=== PATIENT | female | born 1935 | race Caucasian/White ===

== ENCOUNTER 2016-09-07 11:44 | Emergency (ER) | payer MEDICARE, OTHER ==
--- NOTE | ~2016-09-07 | CR141 ---
[facility] A Service [facility] RADIOLOGY TEXT RESULTS PATIENT: MARILY KINCAID LOCATION: [facility] : 33 UNIT #: [id number] AGE: [address]: Andrea Lanier MD SEX: F ORDER DR: [id number] [facility] [address] [place], [place] [address] [id number] E MR#: [id number] Acc #: [id number] NAME: MARILY KINCAID. : 1935 SEX: F STUDY DATE/TIME: 09/07/2016 11:06 UNIT: [facility] ROOM: STUDY DESCRIPTION: CR Hand Min 3 Views Lt Attending Physician: Andrea Lanier M.D. Ordering Physician: Ed Doctor [id number] [facility] Primary Care Physician: Cesar Gimenez III, M.D. MEDICAL IMAGING REPORT This report is preliminary unless electronic signature is present EXAM Left hand 09/07/2016 INDICATION 80-year-old female with left hand pain and swelling. Wrist pain symptoms 3 days. No known injury. TECHNIQUE 3 views left hand. COMPARISON None. FINDINGS There is generalized nonspecific soft tissue swelling. No subcutaneous air or focal erosive change. This may reflect cellulitis. No acute fracture. There are degenerative changes of the PIP and DIP joints. 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 IMPRESSION 1. There is nonspecific generalized soft tissue swelling about the wrist that may reflect cellulitis. 2. The bones are osteoporotic. No acute fracture. 3. Degenerative changes and evidence of CPPD as described. Dictated by... Shaquille Melendez M.D. THIS IS AN ELECTRONICALLY VERIFIED REPORT Shaquille Melendez M.D. at 09/07/2016 4:00 PM SYED/diamond [facility] A [facility] RADIOLOGY TEXT RESULTS PATIENT: MARILY KINCAID LOCATION: [facility] : 33 UNIT #: [id number] AGE: [address]: Andrea Lanier MD SEX: F ORDER DR: TD: 09/07/2016 13:20 JOB #: [id number] MEDICAL IMAGING REPORT COPY
--- NOTE | ~2016-09-07 | CR281 ---
[facility] A Service [facility] RADIOLOGY TEXT RESULTS PATIENT: MARILY KINCAID LOCATION: [facility] : 33 UNIT #: [id number] AGE: [address]: Andrea Lanier MD SEX: F ORDER DR: [id number] [place] [id number] [facility]. [place], [place] [address] [id number] E MR#: [id number] Acc #: [id number] NAME: MARILY KINCAID. : 1935 SEX: F STUDY DATE/TIME: 09/07/2016 11:05 UNIT: [facility] ROOM: STUDY DESCRIPTION: CR Wrist Min 3 View Lt Attending Physician: Andrea Lanier M.D. Ordering Physician: Harshad Soares M.D. Primary Care Physician: Cesar Gimenez III, M.D. MEDICAL IMAGING REPORT This report is preliminary unless electronic signature is present EXAM Left wrist, 09/07/2016. HISTORY 80-year-old female with wrist pain and swelling for 3 days. No known injury. TECHNIQUE 3 views left wrist. COMPARISON STUDIES None FINDINGS The bones are osteoporotic. No acute fracture. There is mild degenerative change in the radiocarpal joint. There is evidence of CPPD. Alignment preserved. Nonspecific soft tissue prominence about the wrist. No subcutaneous air or focal erosive change. IMPRESSION 1. There is generalized nonspecific soft tissue swelling that may reflect cellulitis. 2. No acute fracture; the bones are osteoporotic. Mild degenerative change and evidence of CPPD. Dictated by... Shaquille Melendez M.D. THIS IS AN ELECTRONICALLY VERIFIED REPORT Shaquille Melendez M.D. at 09/07/2016 4:00 PM [facility] A Service [facility] RADIOLOGY TEXT RESULTS PATIENT: MARILY KINCAID LOCATION: [facility] : 33 UNIT #: [id number] AGE: [address]: Andrea Lanire MD SEX: F ORDER DR: Rene TD: 09/07/2016 13:18 JOB #: [id number] MEDICAL IMAGING REPORT COPY
[~2016-09-07 11:44] MED LIST: ACTOPLUS MET 151 TA2; ACTOPLUS MET 151 TA2 PO; ATENOLOL25 MG PO; DARVOCET-N 1001 TA1 PO; DORZOLAMIDE-TIM10 ML OP; LANOXIN PO; MICRO-K; NEXIUM PO; TRAVATAN Z5 ML OP; TRAVATAN5 ML; ZOCOR; ZOCOR20 MG PO; ZOLOFT; ZOLOFT50 MG PO; [UNRECOGNIZED DRUG - OTHER] PO
== END 2016-09-07 12:58 | disposition home or self-care (01) ==
LOC: CED 11:44
DX: M25.532 Pain in left wrist (principal)
CPT/HCPCS: 29125; 73110; 73130; 99283

== ENCOUNTER 2016-10-12 12:25 | Emergency (ER) | payer MEDICARE, OTHER ==
--- NOTE | ~2016-10-12 | EKG ---
PATIENT: MARILY KINCAID UNIT #: [id number] Ventricular Rate: 122 BPM Atrial Rate: 91 BPM P-R Interval: 192 ms QRS Duration: 76 ms Q-T Interval: 284 ms QTC Calculation(Bezet): 404 ms Calculated R Taylor: 6 degrees Calculated T Taylor: 72 degrees Diagnosis Line: Multifocal atrial tachycardia Diagnosis Line: Septal infarct , age undetermined Diagnosis Line: Nonspecific ST and T wave abnormality Diagnosis Line: Abnormal ECG Diagnosis Line: No previous ECGs available Diagnosis Line: Confirmed by FRANCISCO ROPER MD ([id number]) on 10/14/2016 Diagnosis Line: 7:00:57 AM INTERPRETING MD: JUDSON ARNDT
--- NOTE | ~2016-10-12 | CR72 ---
[facility] A Service of [facility] RADIOLOGY TEXT RESULTS PATIENT: MARILY KINCAID LOCATION: [facility] : 33 UNIT #: [id number] AGE: [address]: Darcy Lloyd MD SEX: F ORDER DR: [id number] [facility] [address] [place], [place] [address] [id number] E MR#: [id number] Acc #: [id number] NAME: MARILY KINCAID : 1935 SEX: F STUDY DATE/TIME: 10/12/2016 12:23 UNIT: [facility] ROOM: STUDY DESCRIPTION: CR Chest Single View Portable Attending Physician: Darcy Lloyd M.D. Ordering Physician: Darcy Lloyd M.D. Primary Care Physician: Cesar Gimenez III, M.D. MEDICAL IMAGING REPORT This report is preliminary unless electronic signature is present EXAM AP chest radiograph, 10/12 COMPARISON 09/24/2015 HISTORY Palpitations. FINDINGS An AP view is obtained. Cardiac size in the patient is stable. Lungs show atelectasis in the bases with elevation of both hemidiaphragms. No acute process is seen. CONCLUSION Low volumes. No acute process. Dictated by... Bridger Olivia M.D. THIS IS AN ELECTRONICALLY VERIFIED REPORT Bridger Olivia M.D. at 10/15/2016 7:21 AM FIDEL/byron TD: 10/12/2016 16:12 JOB #: [id number] MEDICAL IMAGING REPORT Page 1 of 1 COPY
--- NOTE | ~2016-10-12 | EKG ---
PATIENT: MARILY KINCAID UNIT #: [id number] Ventricular Rate: 69 BPM Atrial Rate: 69 BPM P-R Interval: 198 ms QRS Duration: 84 ms Q-T Interval: 364 ms QTC Calculation(Bezet): 390 ms P Sel[place]: 76 degrees Calculated R [place]: 2 degrees Calculated T [place]: 64 degrees Diagnosis Line: Normal sinus rhythm Diagnosis Line: Normal ECG Diagnosis Line: When compared with ECG of 12-OCT-2016 11:56, Diagnosis Line: (unconfirmed) Diagnosis Line: Vent. rate has decreased BY 53 BPM Diagnosis Line: Confirmed by KAM COLEMAN MD ([id number]) on Diagnosis Line: 10/13/2016 4:53:01 PM INTERPRETING MD: FELI
[2016-10-12 12:15] LABS: POC - CKMB 2.2 ng/mL (0.0-7.9); POC - TROPONIN <0.05 ng/mL (<=0.05)
[2016-10-12 12:47] LABS: BASOPHIL% 0.3 % (0-2.5); EOSINOPHIL# 0.1 X10e3 (0-0.7); EOSINOPHIL% 1.2 % (0.0-7.0); HEMATOCRIT 41.9 % (35.0-45.0); HEMOGLOBIN 13.5 gm/dL (12.0-16.0); LYMPHOCYTE# 1.5 X10e3 (1.0-3.5); LYMPHOCYTE% 15.4 % (17.0-45.0); MEAN CELL VOLUME 83.9 FL (83-96); MEAN CORPUSCULAR HEMOGLOBIN 27.1 PG (28-34); MEAN CORPUSCULAR HGB CONC 32.3 g/dL (30-36); MEAN PLATELET VOLUME 8.6 FL (6.5-11.5); MONOCYTE# 0.9 X10e3 (0-1.0); MONOCYTE% 8.5 % (3.0-12.0); NEUTROPHIL# 7.5 X10e3 (1.5-7.1); NEUTROPHIL% 74.6 % (40-75); PLATELET COUNT 261 X10e3 (140-420); RED BLOOD COUNT 4.99 X10e (3.90-5.30); RED CELL DISTRIBUTION WIDTH 15.8 % (11.0-15.5)
[2016-10-12 12:54] LABS: DIFF IND NO
[2016-10-12 12:57] LABS: INR 1.7; PROTHROMBIN TIME (PATIENT) 18.5 SECONDS (9.6-11.5)
[2016-10-12 13:14] LABS: ALBUMIN SERUM 3.5 g/dL (3.5-5.0); BILIRUBIN, DIRECT 0.1 mg/dL (0.0-0.2); BILIRUBIN,INDIRECT 0.4 mg/dL (0.0-0.9); BILIRUBIN,TOTAL 0.5 mg/dL (0.2-2.0); CALCIUM SERUM 8.9 mg/dL (8.4-10.2); CREATININE SERUM 0.7 mg/dL (0.6-1.4); DIGOXIN (LANOXIN) 1.1 ng/ml (1.0-2.0); GLOM FILT RATE Estimated 80.1 mL/min (>60); MAGNESIUM 1.7 mg/dL (1.6-3.0); POTASSIUM 4.2 mmol/L (3.5-5.1); PROTEIN TOTAL SERUM 7.2 g/dL (6.0-8.3)
== END 2016-10-12 15:14 | disposition home or self-care (01) ==
LOC: CED 12:25
PROVIDERS: Emergency Medicine
DX: I48.91 Unspecified atrial fibrillation (principal); E11.9 Type 2 diabetes mellitus without complications; K21.9 Gastro-esophageal reflux disease without esophagitis; I10 Essential (primary) hypertension; Z90.49 Acquired absence of other specified parts of digestive tract; Z90.710 Acquired absence of both cervix and uterus
CPT/HCPCS: 36415; 71010; 80048; 80076; 80162; 82553; 83735; 84443; 84484; 85025; 85610; 85730; 93005; 99283; J3490

== ENCOUNTER 2016-12-31 11:04 | Emergency (ER) | payer MEDICARE, OTHER ==
--- NOTE | ~2016-12-31 | CR173 ---
[facility] A Service [facility] RADIOLOGY TEXT RESULTS PATIENT: MARILY KINCAID LOCATION: [facility] : 33 UNIT #: [id number] AGE: [address]: Piyush Umana MD SEX: F ORDER DR: [id number] [facility] [address] [place], [place] [address] [id number] E MR#: [id number] Acc #: [id number] NAME: MARILY KINCAID : 1935 SEX: F STUDY DATE/TIME: 12/31/2016 UNIT: [facility] ROOM: STUDY DESCRIPTION: CR Knee 3 Views Rt Attending Physician: Piyush Umana M.D. Ordering Physician: Piyush Umana M.D. Primary Care Physician: Cesar Gimenez III, M.D. MEDICAL IMAGING REPORT This report is preliminary unless electronic signature is present EXAM Right knee 12/31/2016 1151 hours HISTORY Patient slipped and fell today with posterior knee pain since fall. COMPARISON Bilateral knee films 10/04/2014. FINDINGS AP, cross-table lateral and sunrise views demonstrate advanced tricompartmental degenerative changes, greatest in the lateral and patellofemoral compartments, similar to 10/04/2014. There is no joint effusion or fracture. No dislocation. IMPRESSION There is advanced degenerative change, particularly in the lateral and patellofemoral compartments, similar to 10/04/2014. No joint effusion or fracture is seen. Dictated by... Melody Millard M.D. THIS IS AN ELECTRONICALLY VERIFIED REPORT Melody Millard M.D. at 01/01/2017 9:48 AM MOOKIE/fidencio TD: 12/31/2016 21:57 JOB #: [id number] MEDICAL IMAGING REPORT [facility] A Service [facility] RADIOLOGY TEXT RESULTS PATIENT: MARILY KINCAID LOCATION: [facility] : 33 UNIT #: [id number] AGE: [address]: Piyush Umana MD SEX: F ORDER DR: Page 1 of 1 COPY
--- NOTE | ~2016-12-31 | CR63 ---
[facility] A Service of [facility] RADIOLOGY TEXT RESULTS PATIENT: MARILY KINCAID LOCATION: [facility] : 33 UNIT #: [id number] AGE: [address]: Piyush Umnaa MD SEX: F ORDER DR: [id number] [facility] [address] [place], [place] [address] [id number] E MR#: [id number] Acc #: [id number] NAME: MARILY KINCAID : 1935 SEX: F STUDY DATE/TIME: 12/31/2016 11:51 UNIT: [facility] ROOM: STUDY DESCRIPTION: CR Chest 2 View Attending Physician: Piyush Umana M.D. Ordering Physician: Piyush Umana M.D. Primary Care Physician: Cesar Gimenez III, M.D. MEDICAL IMAGING REPORT This report is preliminary unless electronic signature is present EXAM Two views chest 12/31/2016 HISTORY Trauma. Slipped and fell today. Posterior knee pain. Right rib pain below the breast. TECHNIQUE PA and lateral radiographs chest are presented. COMPARISON STUDIES 10/12/2016. FINDINGS Stable thoracic scoliosis. No acute-appearing bony abnormality. Heart normal in size. The thoracic aorta is mildly tortuous. Lungs are hyperinflated suggesting underlying chronic airway disease. Correlate with risk factors. There is no dense airspace disease, pleural effusion or pneumothorax. Visualized upper abdomen unremarkable. Dictated by... Bridger Marinelli M.D. THIS IS AN ELECTRONICALLY VERIFIED REPORT Bridger Marinelli M.D. at 01/02/2017 11:34 AM MATTHEW/fidencio TD: 12/31/2016 22:38 JOB #: [id number] MEDICAL IMAGING REPORT [facility] A Service [facility] RADIOLOGY TEXT RESULTS PATIENT: MARILY KINCAID LOCATION: [facility] : 33 UNIT #: [id number] AGE: [address]: Piyush Umana MD SEX: F ORDER DR: Page 1 of 1 COPY
[2016-12-31 12:19] LABS: INR 2.7
[2016-12-31 12:32] LABS: PROTHROMBIN TIME (PATIENT) 29.9 SECONDS (10.0-11.7)
== END 2016-12-31 13:28 | disposition home or self-care (01) ==
LOC: CED 11:04
PROVIDERS: Emergency Medicine
DX: S20.211A Contusion of right front wall of thorax, initial encounter (principal); S80.01XA Contusion of right knee, initial encounter; I10 Essential (primary) hypertension; E11.9 Type 2 diabetes mellitus without complications; I48.91 Unspecified atrial fibrillation; Z79.01 Long term (current) use of anticoagulants; W01.0XXA Fall on same level from slipping, tripping and stumbling without subsequent striking against object, initial encounter; Y92.009 Unspecified place in unspecified non-institutional (private) residence as the place of occurrence of the external cause
CPT/HCPCS: 36415; 71020; 73562; 85610; 99284